=== PATIENT | male | born 1965 | race Caucasian/White ===

== ENCOUNTER 2017-06-13 13:59 | Emergency (ER) | payer BC ==
--- NOTE | 2017-06-13 14:00 | PDOC ---
History of Present Illness - General Chief Complaint: Revisit, Lab Variance Stated Complaint: abnormal lab results Time Seen by Provider: 06/13/17 14:00 - History of Present Illness Initial Comments: 06/13/17 14:21 52-year-old male with a history of hyperlipidemia (previously on statin, no longer due to good diet control) is sent to the ED by his PMD Dr. Martin for repeat CPK level. Pt presented for follow up yesterday at which point he reported his legs were sore. Pt played softball for the first time in a while the day before yesterday and states this is why his legs were sore. 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 Martin sent another CPK and found it to be elevated to 1058 (labs faxed over). Creatinine is 0.77. Pt feels well today, says his legs feel sore which he expected after his recent activity. He reports he has been drinking water all day. Denies dark urine or decreased urine output. He denies fevers, chills, chest pain, shortness of breath, headache, weakness, numbness, lower extremity edema. Past History - Past Medical History Allergies/Adverse Reactions: Allergies Allergy/AdvReac Type Severity Reaction Status Date / Time Penicillins Allergy Intermediate Rash Verified 06/13/17 14:00 Home Medications: Ambulatory Orders Aspirin [Aspirin EC] 81 mg PO DAILY 06/13/17 Review of Systems - Review of Systems Comments:: 06/13/17 14:32 GENERAL: Awake, alert, and fully oriented, in no acute distress HEAD: No signs of trauma EYES: PERRLA, EOMI, sclera anicteric, conjunctiva clear ENT: Auricles normal inspection, hearing grossly normal, nares patent, oropharynx clear without exudates. Moist mucosa NECK: Normal ROM, supple, no lymphadenopathy, JVD, or masses LUNGS: Breath sounds equal, clear to auscultation bilaterally. No wheezes, and no crackles HEART: Regular rate and rhythm, normal S1 and S2, no murmurs, rubs or gallops ABDOMEN: Soft, nontender, normoactive bowel sounds. No guarding, no rebound. No masses EXTREMITIES: Normal range of motion, no edema. No clubbing or cyanosis. No cords, erythema, or tenderness. +sore LE NEUROLOGICAL: Normal speech, cranial nerves intact, negative pronator drift, 5/ 5 strength in all 4 extremities, normal sensation to light touch in all 4 extremities, normal cerebellar exam, normal gait, normal reflexes and tone SKIN: Warm, Dry, normal turgor, no rashes or lesions noted. *Physical Exam - Physical Exam Comments: 06/13/17 14:32 GENERAL: Awake, alert, and fully oriented, in no acute distress HEAD: No signs of trauma EYES: PERRLA, EOMI, sclera anicteric, conjunctiva clear ENT: Auricles normal inspection, hearing grossly normal, nares patent, oropharynx clear without exudates. Moist mucosa NECK: Normal ROM, supple, no lymphadenopathy, JVD, or masses LUNGS: Breath sounds equal, clear to auscultation bilaterally. No wheezes, and no crackles HEART: Regular rate and rhythm, normal S1 and S2, no murmurs, rubs or gallops ABDOMEN: Soft, nontender, normoactive bowel sounds. No guarding, no rebound. No masses EXTREMITIES: Normal range of motion, no edema. No clubbing or cyanosis. No cords, erythema, or tenderness NEUROLOGICAL: Normal speech, cranial nerves intact, negative pronator drift, 5/ 5 strength in all 4 extremities, normal sensation to light touch in all 4 extremities, normal cerebellar exam, normal gait, normal reflexes and tone SKIN: Warm, Dry, normal turgor, no rashes or lesions noted. ED Treatment Course - LABORATORY CBC & Chemistry Diagram: 06/13/17 14:05 06/13/17 14:05 Medical Decision Making - Medical Decision Making 06/13/17 14:32 52-year-old male presents emergency department for repeat CPK after it was elevated to 1058 yesterday. Patient feels well. Blood pressure elevated in triage, however on my exam, repeat blood pressure is 144/82. Will check CBC, CMP , CPK, give 1 L of fluids and reassess. *DC/Admit/Observation/Transfer Diagnosis at time of Disposition: Increased CPK level - Discharge Dispostion Disposition: HOME Condition at time of disposition: Stable - Referrals Referrals: Eliana Phillips MD [Primary Care Provider] - - Patient Instructions Printed Discharge Instructions: Creatine Kinase Additional Instructions: Follow-up with Dr. Martin within 2-3 days. Your CPK level is elevated, likely due to to the softball game on Monday. While this level is elevated, it is not high enough to cause any damage to your kidneys or other organs. Continue to drink a lot of water and plenty of fluids as this will flush the CPK out of your system. Return to the emergency department if you have any new, worsening or concerning symptoms. - Post Discharge Activity - Attestations Physician Attestion: 06/13/17 15:00 I, Dr. Jumana Sanchez MD, attest that this document has been prepared under my direction and personally reviewed by me in its entirety. I further attest, that it accurately reflects all work, treatment, procedures and medical decision -making performed by me.
[2017-06-13] MEDS ORDERED: SODIUM CHLORIDE 1,000 ML IV STA (14:01)
[2017-06-13 14:04] VITALS: TEMP 98.4; BMI 28.7
[2017-06-13 14:28] LABS: EOS % 2.8 % (0-4.5); HEMATOCRIT 43.6 % (35.4-49); HEMOGLOBIN 15.3 GM/dl (11.7-16.9); MCH 31.4 pg (25.7-33.7); MEAN CELL VOLUME 89.7 fl (80-96); MEAN PLT VOLUME 7.4 fl (7.5-11.1); MONO % 8.9 % (3.8-10.2); NEUT % 55.3 % (42.8-82.8); PLATELET COUNT 230 K/MM3 (134-434); RBC 4.86 M/mm3 (4.00-5.60); RDW 12.2 % (11.9-15.9); WHITE BLOOD COUNT 5.9 K/mm3 (4.0-10.8)
[2017-06-13 14:37] LABS: ALBUMIN 4.2 g/dl (3.5-5.0); ALK PHOS 73 U/L (32-92); ANION GAP 7 (8-16); BILIRUBIN,TOTAL 0.7 mg/dl (0.2-1.0); BLOOD UREA NITROGEN 17 mg/dl (7-18); CALCIUM 9.2 mg/dl (8.4-10.2); CHLORIDE 104 mmol/L (98-107); CO2 27 mmol/L (22-28); CREATININE 0.9 mg/dl (0.6-1.3); GLUCOSE,RANDOM 93 mg/dl (74-106); POTASSIUM 3.7 mmol/L (3.5-5.1); SGOT/AST 42 U/L (10-42); SGPT/ALT 29 U/L (10-40); SODIUM 138 mmol/L (136-145); TOT PROT 6.8 g/dl (6.4-8.3)
[2017-06-13 15:07] VITALS: BP 134/94; PULSE 72
== END 2017-06-13 15:24 | disposition home or self-care (01) ==
LOC: SUPCPDRO 13:59 → FER 13:59
PROC: 3E0337Z Introduction of Electrolytic and Water Balance Substance into Peripheral Vein, Percutaneous Approach (ICD-10-PCS; principal; 2017-06-13)
DX: R74.8 Abnormal levels of other serum enzymes (principal); E78.5 Hyperlipidemia, unspecified
CPT/HCPCS: 36415; 80053; 82550; 82553; 85025; 99283-25; J7030